=== PATIENT | female | born 2000 | race Caucasian/White ===

== ENCOUNTER 2022-11-15 21:04 | Emergency (ER) | payer MEDICAID, OTHER ==
[~2022-11-15] VITALS: Ht 167.6 cm; Wt 114.6 kg
[2022-11-15 21:08] VITALS: BP 129/78; PULSE 73; RESP 16; TEMP 98.2; O2SAT 100
== END 2022-11-15 23:56 | disposition left against medical advice (07) ==
LOC: ER 21:04
DX: Z53.21 Procedure and treatment not carried out due to patient leaving prior to being seen by health care provider (principal)
CPT/HCPCS: 73630; 99281; 99283